=== PATIENT | female | born 1990 | race Two or more races ===

== ENCOUNTER → 2022-12-02 | Outpatient (CLI) | payer MEDICAID ==
[~2022-12-02] MED LIST: ALBUTEROL SULF 2.5 MG/0.5ML(0.5%) NEB SOLN ONE
== END | disposition home or self-care (01) ==
LOC: RT 09:15
PROVIDERS: ATTEND Internal Medicine Pulmonary Disease
DX: R06.00 Dyspnea, unspecified (principal); R06.02 Shortness of breath
CPT/HCPCS: 94060; 94727; 94729

== ENCOUNTER 2024-11-09 18:36 | Emergency (ER) | payer MEDICAID ==
[~2024-11-09] VITALS: Ht 162.6 cm; Wt 77.0 kg
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
[2024-11-09 18:55] VITALS: BP 123/72; PULSE 100; RESP 16; TEMP 98.2; O2SAT 93
[2024-11-09] MEDS: ACETAMINOPHEN 325 MG TAB PO ONE (18:55)
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
== END 2024-11-09 21:29 | disposition home or self-care (01) ==
LOC: EDUNIT# 18:36 → EDBD 18:36 → ER 18:36
DX: S09.90XA Unspecified injury of head, initial encounter (principal); I10 Essential (primary) hypertension; X58.XXXA Exposure to other specified factors, initial encounter; Y93.89 Activity, other specified; Y92.89 Other specified places as the place of occurrence of the external cause; Y99.8 Other external cause status
CPT/HCPCS: 70450